=== PATIENT | male | born 2005 | race Caucasian/White ===

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

== ENCOUNTER 2023-05-30 23:30 | Emergency (ER) | payer OTHER ==
[~2023-05-30] VITALS: Ht 170.2 cm; Wt 65.8 kg
[2023-05-30 23:45] VITALS: BP 123/66; PULSE 60; RESP 17; TEMP 97.8; O2SAT 100
[2023-05-31 00:30] VITALS: O2SAT 100
[2023-05-31] MEDS ORDERED: IBUP-2213 PO (01:30)
[2023-05-31] MEDS ORDERED: ACET-10509 PO (01:30)
[2023-05-31] MEDS ORDERED: HYDROcodone/APAP 7.5/325 MG 1 TAB PO ONE (01:35)
[2023-05-31] MEDS ORDERED: KETOROLAC 30 MG/ML VIAL IVP ONE (01:35)
== END 2023-05-31 01:55 | disposition home or self-care (01) ==
LOC: MED 23:30
DX: S43.004A Unspecified dislocation of right shoulder joint, initial encounter (principal); J45.909 Unspecified asthma, uncomplicated; Z79.899 Other long term (current) drug therapy; X58.XXXA Exposure to other specified factors, initial encounter; Y93.89 Activity, other specified; Y92.89 Other specified places as the place of occurrence of the external cause; Y99.8 Other external cause status
CPT/HCPCS: 23650; 73030; 96374; 99284; J1885; Q0092